=== PATIENT | male | born 1995 | race Caucasian/White ===

== ENCOUNTER 2024-06-28 14:53 | Emergency (ER) | payer BC, SELFPAY ==
[2024-06-28 14:55] VITALS: BP 129/79; PULSE 112; RESP 18; TEMP 36.7; O2SAT 100; BMI 24.5
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
--- NOTE | 2024-06-28 15:39 | ED.RN ---
Per Dr. Aguilar, patient does not need a sitter at this time.
--- NOTE | 2024-06-28 15:45 | EX.ED.VIS.PS ---
HPI HPI - Psych History of Present Illness Chief Complaint: Mental Health Informant: patient and parent Onset/Context/Timing Onset: Weeks Context: Gradual Onset Timing: Continuous Current Severity: Moderate Maximum Severity: Moderate Associated Symptoms Associated Symptoms - Psych: Positive for Depressed Specific plan (suicidal thought): No plan. Not suicidal nor homicidal. Narrative Narrative: 28-year-old male history of autism, anxiety and depression. States that he is a virgin. He is talking about his sister who is reportedly attractive and works out a lot. At times wears rather limited workout close. He is concerned the next time she comes home a workout close he will be unable to control himself. This comes both from the patient and his parents are both present in room. He denies being suicidal or homicidal. He has never been admitted to a psychiatric facility. Denies alcohol or drug use. Prior similar symptoms: Yes Recent Illness/Hospitalization: No PFSH PFSH Home Medications ?Medication ?Instructions ?Recorded ?Last Taken ?Type albuterol sulfate 90 mcg/actuation 2 puff inhalation Q6H PRN PRN 06/28/24 Unknown History aerosol inhaler wheezing montelukast 10 mg tablet 10 mg PO QHS 06/28/24 Unknown History Allergy/AdvReac Type Severity Reaction Status Date / Time amoxicillin (From Augmentin) Allergy Mild Rash Verified 06/28/24 15:06 azithromycin Allergy Mild Rash Verified 06/28/24 15:06 clavulanic acid (From Allergy Mild Rash Verified 06/28/24 15:06 Augmentin) Social History Smoking Status: Never smoker ROS ROS ED ROS Narrative Denies recent illness. Constitutional Constitutional ED: Denies fever(s) Eyes Eyes: Denies blurry vision ENT ENT ED: Denies ear pain Cardiovascular Cardiovascular: Denies chest pain Respiratory/Chest Respiratory/Chest: Denies cough or dyspnea Gastrointestinal Gastrointestinal: Denies abdominal pain Genitourinary Genitourinary ED: Denies dysuria or hematuria Musculoskeletal Musculoskeletal: Denies arthralgias Integumentary Denies abscess or Abrasions Neurologic Neurologic: Denies headache(s) Psychiatric Psychiatric: Reports anxiety Endocrine Endocrinology: Denies polydipsia Hematologic/Lymphatic Hematologic/Lymphatic: Denies easy bleeding Allergic/Immunologic Allergic/Immunologic ED: Denies mouth swelling EXAM Physical Exam Narrative Exam Narrative: Well-appearing 28-year-old male. Vital signs stable afebrile. H EENT exam unremarkable atraumatic. Moist mucous membranes. Neck nontender. No ligature arellano. No trauma. Lungs clear to auscultation bilaterally. Heart regular rhythm rate about 105 no murmur. Chest wall ribs nontender. Abdomen soft nontender. Moving all 4 extremities. Nontender no edema. No track arellano. No lacerations or old scars. Back nontender. Neurologically is awake alert no focal motor deficits. Const Vital Signs: 06/28/24 14:55 06/28/24 16:14 Temperature 98.1 F 97.8 F Temperature Source Temporal Temporal Pulse Rate 112 H 64 Respiratory Rate 18 18 Blood Pressure 129/79 H 129/79 H Blood Pressure Mean 95 95 Pulse Ox 100 99 Oxygen Delivery Method Room Air Room Air Positive well nourished and well developed; Negative for obese, cachectic, contractures or unkempt General Appearance ED: well developed and NAD; Negative for unkempt, cachectic, contractures or pallor Nutritional Appearance: Negative for cachectic or obese HEENT Reports moist mucous membranes normocephalic and atraumatic; Negative for trauma or tenderness Eyes PERRL and EOMs intact bilaterally General Eye ED: Negative for pale conjunctiva Neck no lymphadenopathy, supple and no JVD General: Negative for tenderness Resp normal respiratory effort and clear to auscultation bilaterally Effort and Inspection: Negative for retractions Auscultation: Negative for rales, rhonchi, wheezes or diminished lung sounds Cardio S1 normal heart sound, S2 normal heart sound and no murmurs Palpation: Negative for other Rate: tachycardic Rhythm: regular rhythm GI non-distended and no masses Palpation: soft; Negative for tender Back/Spine no CVA tenderness General Back: Negative for CVA tenderness Cervical Spine: Negative for cervical spine tenderness Thoracic Spine / Upper Back: Negative for thoracic spinal tenderness Lumbar Spine / Lower Back: Negative for lumbar spinal tenderness Coccyx: Negative for other Extremity normal to inspection General Extremety ED: Negative for edema, tenderness or other findings General Extremity: Negative for edema or other findings Neuro oriented x3 Sensorium / Orientation: alert, oriented to person, oriented to place and oriented to time Motor Exam: strength 5/5 throughout Psych mental status grossly normal, thought process normal, cooperative, affect normal, speech normal, activity/motor behavior normal, denies hallucinations, denies homicidal ideation and denies suicidal ideation Appearance: grossly normal, appropriate and well kempt; Negative for unkempt, disheveled, bizarre or intubated Attitude: calm and engaged Activity / Motor Behavior: avoids eye contact Speech: normal speech Mood & Affect: depressed and anxious Thought Process: normal thought process Thought Content: No normal thought content Attention / Concentration: attention grossly intact Memory / Cognition: memory grossly intact Insight: insight good Judgement: judgement good Skin General Skin Exam: Negative for jaundice or pallor Lesions: no lesions Rashes: no rashes MDM MDM MDM Narrative Medical decision making narrative: 28-year-old male with autism who both he and his parents are concerned for the safety of his sister. Patient denies being suicidal or homicidal. ED mental health workup and crisis evaluation. Repeat exam unchanged at 5:40 PM. Mom at bedside. Patient's eating a tray of food. Awaiting crisis evaluation. Crisis evaluated the patient. Patient will not let go of his father. He appears to be getting more anxious. He was offered p.o. Ativan but refused to take it. He will be given IM Geodon. Patient was evaluated by crisis who plans on transferring him admitted into a psychiatric facility they are working on that. Patient was resting in the room. However he tried to leave and the staff explained him he could leave he started fighting with the staff when they try to get him back in bed he was fighting more. Security was involved. Beginning back in bed he had to be put in restraints. He will be given another dose of Geodon. Lab Data Attestation: I reviewed the patient's lab results. Lab results narrative: CBC shows a white count 11. H&H 16 and 48. Platelets 253. Electrolytes show gap 10. Normal BUN and creatinine. Glucose 123. Alcohol negative. Tox screen negative. Labs: Laboratory Results - last 24 hr 06/28/24 06/28/24 15:50 17:20 WBC 11.1 H RBC 5.54 Hgb 16.3 Hct 48.0 MCV 86.6 MCH 29.4 MCHC 34.0 RDW Std Deviation 36.5 RDW Coeff of Rip 11.5 L Plt Count 253 MPV 10.4 Immature Gran % (Auto) 0.300 Neut % (Auto) 85.8 H Lymph % (Auto) 7.4 L Louisa % (Auto) 6.3 Eos % (Auto) 0.0 Baso % (Auto) 0.2 Absolute Neuts (auto) 9.6 H Absolute Lymphs (auto) 0.82 L Nucleated RBC % 0 Sodium 138 Potassium 3.5 Chloride 105 Carbon Dioxide 23.0 Anion Gap 10 BUN 13 Creatinine 1.10 Estim Creat Clear Calc 118.32 Est GFR (MDRD) Af Amer 103 Est GFR (MDRD) Non-Af 85 BUN/Creatinine Ratio 11.8 Glucose 123 H Calcium 9.5 Urine Opiates Screen NEGATIVE Urine Methadone Screen NEGATIVE Ur Barbiturates Screen NEGATIVE Ur Phencyclidine Scrn NEGATIVE Ur Amphetamines Screen NEGATIVE MDMA (Ecstasy) Screen NEGATIVE U Benzodiazepines Scrn NEGATIVE Urine Cocaine Screen NEGATIVE U Cannabinoids Screen NEGATIVE Ur Drug Screen Comment Ethyl Alcohol < 3.0 Discharge Plan Triage Chief Complaint: Mental Health ED Provider: Bo Aguilar Dx/Rx/DC Orders Clinical Impression: Psychosis, History of autism Prescriptions: No Action montelukast 10 mg tablet 10 mg PO QHS albuterol sulfate 90 mcg/actuation HFA aerosol inhaler 2 puff inhalation Q6H PRN PRN (Reason: wheezing) Primary Care Provider: Kodak Huizar Referrals: Kodak Huizar MD [Primary Care Provider] - Print Language: Croatian Disposition Disposition: Psychiatric Hospital or Unit
[2024-06-28 16:12] LABS: Absolute Lymphocyte Count 0.82 X10^3/uL (0.83-4.51); Absolute Neutrophil Count 9.6 X10^3/uL (2.0-7.7); Basophil# 0.02 X10^3/uL; Basophil% 0.2 % (0-1); Hemoglobin 16.3 g/dL (13.0-16.5); Lymphocyte # 0.82 X10^3/ul (0.83-4.51); Lymphocyte % 7.4 % (19-41); Mean Corpuscular Hgb 29.4 pg (27.0-32.0); Mean Corpuscular Volume 86.6 fL (80-94); Mean Platelet Vol. 10.4 fl (6.2-12.0); Monocyte% 6.3 % (0-10); NRBC Flagged by Analyzer 0 % (0-5); Neutrophil # 9.57 X10^3/uL (2.7-7.7); Neutrophil % 85.8 % (47-70); Platelet Count 253 K/mm3 (150-450); RBC Distribution Width CV 11.5 % (11.6-14.6); RBC Distribution Width SD 36.5 fl (35.1-43.9); Red Blood Count 5.54 M/mm3 (4.6-6.2); White Blood Count 11.1 K/mm3 (4.4-11.0)
[2024-06-28 16:14] VITALS: BP 129/79; PULSE 64; RESP 18; TEMP 36.6; O2SAT 99
[2024-06-28 16:21] LABS: Alcohol, Blood (Medical)-Serum < 3.0 mg/dL
[2024-06-28 16:22] LABS: Anion Gap 10 (5-15); BUN 13 mg/dL (7-18); BUN/Creat Ratio 11.8 RATIO (10-20); Calcium,Total 9.5 mg/dL (8.5-10.1); Chloride 105 mmol/L (98-107); EST Glomerular Filtration Rate 85 mL/min (>60); Est Glom Filt Rate - Afr Amer 103 mL/min (>60); Estimated Creatinine Clearance 118.32 ml/min; Glucose 123 mg/dL (74-106); Potassium 3.5 mmol/L (3.5-5.1); Sodium Level 138 mmol/L (136-145)
--- NOTE | 2024-06-28 16:49 | NURSING ---
FAXED CHART TO CRISIS
--- NOTE | 2024-06-28 17:00 | ED.RN ---
Patient given cup of ice water per request, dinner tray ordered, urinal provided and patient informed on need for urine specimen.
[2024-06-28 17:43] LABS: Amphetamine Urine VISTA NEGATIVE (<1000 ng/mL); Barbiturate Urine VISTA NEGATIVE (< 200 ng/mL); Benzodiazepine Urine VISTA NEGATIVE (< 200 ng/mL); Cocaine Urine VISTA NEGATIVE (< 300 ng/mL); Ecstacy Urine VISTA NEGATIVE (< 500 ng/mL); Methadone Urine VISTA NEGATIVE (< 300 ng/mL); PCP Urine VISTA NEGATIVE (< 25 ng/mL); THC Urine VISTA NEGATIVE (< 50 ng/mL); Vista UDS pH Range 7
[2024-06-28] MEDS: Ziprasidone IM 20 MG/ML VIAL IM (20:45)
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
--- NOTE | 2024-06-28 22:55 | ED.RN ---
Patient placed in 4 point locked restraints for behaviors to harm self and staff.
[2024-06-29 05:32] VITALS: BP 116/76; PULSE 120; RESP 18; O2SAT 95
[2024-06-29 08:56] VITALS: BP 108/76; PULSE 114; RESP 16; TEMP 36.2; O2SAT 96
== END 2024-06-29 08:58 ==
PROVIDERS: Emergency Provider Emergency Medicine; PCP Family Medicine; Visit Provider Emergency Medicine
DX: F29 Unspecified psychosis not due to a substance or known physiological condition (principal); F84.0 Autistic disorder; F41.9 Anxiety disorder, unspecified; F32.A Depression, unspecified
CPT/HCPCS: 80048; 80307; 82077; 85025; 96372; 99285; J3486